=== PATIENT | male | born 1955 | race Caucasian/White ===

== ENCOUNTER 2016-12-26 10:48 | Emergency (ER) | payer OTHER ==
[~2016-12-26] VITALS: Ht 180.3 cm; Wt 86.4 kg
[~2016-12-26 10:48] MED LIST: BACTRIM DS 8001 TAB PO; CEPHALEXIN250 M1 PO; NO HOME MEDICATIONS
[2016-12-26 10:49] VITALS: TEMP 97.6
[2016-12-26 11:17] LABS: BASO # 0.1 (0.0-0.2); BASO % 0.5 % (0.0-2.0); EOS # 0.1 (0.0-0.7); GRAN % 70.7 % (42.2-75.2); HEMATOCRIT 43.5 % (42.0-52.0); HEMOGLOBIN 14.6 g/dl (13.5-18.0); LYMPH # 2.2 (1.2-3.4); LYMPH % 17.6 % (20.0-51.0); MEAN CELL VOLUME 92 fl (80.0-100.0); MEAN CORPUSCULAR HEMOGLOBIN 31 pg (27.0-31.0); MEAN CORPUSCULAR HGB CONC 34 g/dl (33.0-37.0); MONO # 1.2 (0.1-0.6); MONO % 9.7 % (1.7-9.3); PLATELET COUNT 351 K/mm3 (130-400); RED BLOOD COUNT 4.73 M/mm3 (4.20-5.60); REDCELL DISTRIBUTION WIDTH-CV 13.2 % (11.5-14.5); WHITE BLOOD COUNT 12.7 K/mm3 (4.8-10.8)
[2016-12-26 11:18] LABS: ADJUSTED CALCIUM 9.1 mg/dL (8.4-10.2); ALANINE AMINOTRANSFERASE 22 U/L (21-72); ALBUMIN 3.8 gm/dL (3.5-5.0); ALKALINE PHOSPHATASE 90 U/L (50-136); ANION GAP 10 mmol/L (7-16); BILIRUBIN,TOTAL 0.6 mg/dL (0.0-1.0); BLOOD UREA NITROGEN 22 mg/dL (9-20); CALCIUM 8.9 mg/dL (8.4-10.2); CARBON DIOXIDE 26 mmol/L (22-30); CHLORIDE 101 mmol/L (98-107); CREATININE, serum 0.93 mg/dL (0.66-1.25); GLUCOSE 96 mg/dL (74-106); LIPASE 118 U/L (23-300); POTASSIUM 3.9 mmol/L (3.4-5.0); SODIUM 137 mmol/L (137-145); TOTAL PROTEIN 7.1 gm/dL (6.4-8.2)
[2016-12-26 11:30] LABS: B-TYPE NATRIURETIC PEPTIDE 66 pg/mL (0-125); TROPONIN-I < 0.012 ng/mL (0.000-0.034)
[2016-12-26 14:42] VITALS: BP 137/79; PULSE 78
[2016-12-26] MEDS ORDERED: CEPHALEXIN500 M1 PO (14:45)
== END 2016-12-26 14:45 | disposition home or self-care (01) ==
LOC: COL.ER 10:48
PROVIDERS: Emergency Medicine
DX: R07.89 Other chest pain (principal); R53.1 Weakness; F17.200 Nicotine dependence, unspecified, uncomplicated; F10.21 Alcohol dependence, in remission
CPT/HCPCS: J7040

== ENCOUNTER 2018-07-14 03:36 | Emergency (ER) | payer OTHER ==
[~2018-07-14] VITALS: Ht 180.3 cm; Wt 84.1 kg
[~2018-07-14 03:36] MED LIST changes: +CEPHALEXIN500 M1 PO
[2018-07-14 03:52] VITALS: PULSE 83; TEMP 98
[2018-07-14] MEDS ORDERED: NORVASC 5MG5 MG/TAB PO (05:24)
[2018-07-14 05:40] VITALS: BP 164/101
[2018-07-15] MEDS ORDERED: NORVASC 5MG5 MG/TAB PO (17:32)
[2018-07-15] MEDS ORDERED: CLEOCIN HC150 MG/CAP PO (17:32)
== END 2018-07-14 05:40 | disposition home or self-care (01) ==
LOC: COL.ER 03:36
DX: R04.0 Epistaxis (principal); I10 Essential (primary) hypertension; F17.210 Nicotine dependence, cigarettes, uncomplicated

== ENCOUNTER 2018-07-15 16:31 | Emergency (ER) | payer OTHER ==
[~2018-07-15] VITALS: Ht 180.3 cm; Wt 84.1 kg
[~2018-07-15 16:31] MED LIST changes: +NORVASC 5MG5 MG/TAB PO
[2018-07-15 16:37] VITALS: TEMP 96.8
[2018-07-15 17:13] LABS: BASO # 0.1 (0.0-0.2); BASO % 0.8 % (0.0-2.0); EOS # 0.2 (0.0-0.7); EOS % 1.5 % (0-4.0); GRAN # 8.3 (1.4-6.5); GRAN % 70.5 % (42.2-75.2); HEMATOCRIT 44.4 % (42.0-52.0); HEMOGLOBIN 14.7 g/dl (13.5-18.0); LYMPH # 2.4 (1.2-3.4); MEAN CELL VOLUME 91 fl (80.0-100.0); MEAN CORPUSCULAR HEMOGLOBIN 30 pg (27.0-31.0); MEAN CORPUSCULAR HGB CONC 33 g/dl (33.0-37.0); MEAN PLATELET VOLUME 9.3 fl (7.4-10.4); MONO # 0.8 (0.1-0.6); MONO % 6.9 % (1.7-9.3); PLATELET COUNT 368 K/mm3 (130-400); RED BLOOD COUNT 4.88 M/mm3 (4.20-5.60); REDCELL DISTRIBUTION WIDTH-CV 13.5 % (11.5-14.5)
[2018-07-15 17:17] LABS: PROTHROMBIN TIME 11.7 SECONDS (9.7-12.8)
[2018-07-15 17:20] LABS: PARTIAL THROMBOPLASTIN TIME 34.6 SECONDS (26.0-37.0)
[2018-07-15 17:22] LABS: ALBUMIN 3.8 gm/dL (3.5-5.0); BILIRUBIN,TOTAL 0.4 mg/dL (0.0-1.0); CREATININE, serum 1.13 mg/dL (0.66-1.25); POTASSIUM 4.1 mmol/L (3.4-5.0); TOTAL PROTEIN 7.3 gm/dL (6.4-8.2)
[2018-07-15] MEDS ORDERED: NORVASC 5MG5 MG/TAB PO (17:32)
[2018-07-15] MEDS ORDERED: CLEOCIN HC150 MG/CAP PO (17:32)
[2018-07-15 18:04] VITALS: BP 164/98; PULSE 91
[2018-07-16] MEDS ORDERED: CATAPRES 0.1MG0.1 MG PO (04:58)
[2018-07-16] MEDS ORDERED: NORCO 325 MG-51 TAB PO (04:58)
== END 2018-07-15 18:05 | disposition home or self-care (01) ==
LOC: COL.ER 16:31
PROVIDERS: Emergency Medicine
DX: R04.0 Epistaxis (principal); I10 Essential (primary) hypertension; F17.210 Nicotine dependence, cigarettes, uncomplicated

== ENCOUNTER 2018-07-15 19:03 | Emergency (ER) | payer OTHER ==
[~2018-07-15] VITALS: Ht 180.3 cm; Wt 84.1 kg
[~2018-07-15 19:03] MED LIST changes: +CLEOCIN HC150 MG/CAP PO
[2018-07-15 19:09] VITALS: TEMP 98
[2018-07-15 21:02] VITALS: BP 151/99; PULSE 81
[2018-07-16] MEDS ORDERED: NORCO 325 MG-51 TAB PO (04:58)
[2018-07-16] MEDS ORDERED: CATAPRES 0.1MG0.1 MG PO (04:58)
== END 2018-07-15 21:02 | disposition home or self-care (01) ==
LOC: COL.ER 19:03
DX: R04.0 Epistaxis (principal); I10 Essential (primary) hypertension

== ENCOUNTER 2018-07-16 03:11 | Emergency (ER) | payer OTHER ==
[~2018-07-16] VITALS: Ht 180.3 cm; Wt 84.1 kg
[2018-07-16 04:50] VITALS: BP 128/84; PULSE 69
[2018-07-16] MEDS ORDERED: NORCO 325 MG-51 TAB PO (04:58)
[2018-07-16] MEDS ORDERED: CATAPRES 0.1MG0.1 MG PO (04:58)
== END 2018-07-16 05:10 | disposition home or self-care (01) ==
LOC: COL.ER 03:11
DX: R04.0 Epistaxis (principal); I10 Essential (primary) hypertension

== ENCOUNTER → 2018-11-09 | Outpatient (CLI) | payer OTHER ==
[~2018-11-09] MED LIST changes: +CATAPRES 0.1MG0.1 MG PO; +NORCO 325 MG-51 TAB PO
[2018-11-09 18:16] LABS: ALBUMIN 3.8 gm/dL (3.5-5.0); BILIRUBIN,TOTAL 0.6 mg/dL (0.0-1.0); CHOLESTEROL RISK RATIO 6.9; CREATININE, serum 1.21 (0.66-1.25); POTASSIUM 4.2 mmol/L (3.4-5.0); TOTAL PROTEIN 7.6 gm/dL (6.4-8.2)
[2018-11-09 19:51] LABS: PSA-TOTAL 0.73 ng/mL (0-4)
== END ==
LOC: ZCOL.LAB 16:59
PROVIDERS: Family Medicine
DX: Z12.5 Encounter for screening for malignant neoplasm of prostate (principal); Z13.220 Encounter for screening for lipoid disorders; I10 Essential (primary) hypertension
CPT/HCPCS: G0103

== ENCOUNTER 2020-03-27 03:40 | Emergency (ER) | payer OTHER ==
[~2020-03-27] VITALS: Ht 180.3 cm; Wt 84.1 kg
[2020-03-27 03:47] VITALS: TEMP 97.9
[2020-03-27] MEDS ORDERED: NORVASC 5MG5 MG/TAB PO (04:22)
[2020-03-27] MEDS ORDERED: CLEOCIN HC150 MG/CAP PO ×2 (04:22)
[2020-03-27 06:28] VITALS: BP 182/102; PULSE 55
== END 2020-03-27 06:35 | disposition home or self-care (01) ==
LOC: COL.ER 03:40
DX: R04.0 Epistaxis (principal); I10 Essential (primary) hypertension; Z88.1 Allergy status to other antibiotic agents